=== PATIENT | male | born 1995 | race Hispanic/Latino ===

== ENCOUNTER 2024-08-28 11:17 | Emergency (ER) | payer SELFPAY, OTHER ==
[2024-08-28] MEDS ORDERED: HYDROcodone/Acetaminophen 5/325 mg Tablet ONE (12:00)
[2024-08-28] MEDS ORDERED: Boostrix 0.5 ML (Tdap) VIAL (>/=7 yrs of age) ONE (12:00)
== END 2024-08-28 12:53 | disposition home or self-care (01) ==
LOC: CSHERS 11:17
DX: S61.212A Laceration without foreign body of right middle finger without damage to nail, initial encounter (principal); M79.641 Pain in right hand; W20.8XXA Other cause of strike by thrown, projected or falling object, initial encounter; Y93.89 Activity, other specified
CPT/HCPCS: 90715; 99283